=== PATIENT | male | born 1940 | race Hispanic/Latino ===

== ENCOUNTER 2017-05-11 11:52 | Emergency (ER) | payer MEDICARE ==
[~2017-05-11] VITALS: Ht 180.3 cm; Wt 65.8 kg
[2017-05-11] MEDS ORDERED: ONDANSETRON HCL INJ 2 MG/ML VIAL IV STA (13:24)
[2017-05-11] MEDS ORDERED: MORPHINE SULFATE 2 MG/ML SYR IV STA ×2 (13:24→14:22)
[2017-05-11 13:56] VITALS: BP 187/66
[2017-05-11 14:06] LABS: BASOPHILS % 0.7 % (0.0-1.0); EOSINOPHILS # (AUTO) 0.3 (0.0-0.4); EOSINOPHILS % 4.9 % (0.0-6.0); HEMATOCRIT 33.7 % (38.2-49.6); HEMOGLOBIN 10.5 g/dL (14.0-18.0); LYMPHOCYTES # (AUTO) 0.7 (1.0-3.2); LYMPHOCYTES % 10.9 % (18.0-39.1); MEAN CORPUSCULAR HEMOGLOBIN 28.2 pg (28-32); MEAN CORPUSCULAR HGB CONC 31.2 g/dL (31-35); MEAN CORPUSCULAR VOLUME 90.6 fL (81-99); MONOCYTES # (AUTO) 0.5 (0.2-0.8); MONOCYTES % 8.4 % (4.4-11.3); NEUTROPHILS # (AUTO) 4.5 (2.1-6.9); NEUTROPHILS % 74.9 % (38.7-80.0); PLATELET COUNT 169 x10e3/uL (140-360); RED BLOOD COUNT 3.72 x10e6/uL (4.3-5.7)
== END 2017-05-11 21:10 | disposition short-term general hospital (02) ==
LOC: FSED 11:52
DX: R10.11 Right upper quadrant pain (principal); R10.31 Right lower quadrant pain; J90 Pleural effusion, not elsewhere classified; I12.0 Hypertensive chronic kidney disease with stage 5 chronic kidney disease or end stage renal disease; N18.6 End stage renal disease; Z99.2 Dependence on renal dialysis
CPT/HCPCS: 36415; 85025; 99284; J2270; J2405